=== PATIENT | female | born 1960 ===

== ENCOUNTER 2016-09-22 14:53 | Outpatient (CLI) | payer OTHER ==
[~2016-09-22] VITALS: Ht 171.4 cm; Wt 87.3 kg
[2016-09-22 15:02] VITALS: BP 153/66; PULSE 90; RESP 20; Ht 171.4 cm; Wt 87.3 kg
[2016-09-22] MEDS ORDERED: MEGE400O PO (15:13)
[2016-09-22] MEDS ORDERED: LACTINEXG PO (15:13)
[2016-09-22] MEDS ORDERED: LACT10SO5 PO (15:13)
[2016-09-22] MEDS ORDERED: THIA100T56 PO (15:13)
[2016-09-22] MEDS ORDERED: ASCO500C7 PO (15:13)
[2016-09-22] MEDS ORDERED: PANT40TA3 PO (15:13)
[2016-09-22] MEDS ORDERED: TRAM-40 PO (15:13)
--- NOTE | 2016-09-22 17:11 | CONS ---
[facility] INITIAL OUTPATIENT CONSULTATION NOTE DATE OF CONSULTATION: 09/22/2016 PLACE OF SERVICE: [facility] ASSESSMENT AND PLAN: A very pleasant but unfortunate 55-year-old lady with multiple comorbid issues including cirrhosis that has been complicated by portal hypertension and development of what appears to be multifocal hepatocellular carcinoma. These lesions are not surgically resectable given the degree of the patient's cirrhosis. Her chance of mortality is virtually 100 % with the type of operation that is needed. Furthermore, there are contraindications to both surgical resection as well as transplant given the presence of both portal vein thrombosis as well as presence of clot within the right hepatic vein going into the inferior vena cava. The best course of treatment for the patient would be local treatment to the liver in the form of transarterial chemoembolization which is incidentally what was recommended to her by Dr. Carroll in 2016 visit that she had to [facility] on January 05 through January 11. I described the procedure in detail as well as the expected course and outcome. I also discussed potential benefit from systemic chemotherapy, although I do not believe that the benefits justify the risk. Other forms of therapy such as ablative therapy are not as effective in my opinion, and I therefore did not discuss them with her. I answered all the patient's questions to the best of my ability, and I believe that the patient understood and agreed with the plans. Note that this planning and discussion was in conjunction with detailed diagrams. With above assessment, I have recommended the followin. Transarterial chemoembolization to right lobe of the liver. 2. Follow up CT scan triple phase IV abdomen and pelvis, liver dedicated, in 2 to 3 months after performance of TACE. 3. Follow up with oncology regarding systemic chemotherapy options. 4. Follow up with us after above CT. Thank you again for allowing us to participate in the care of this very pleasant lady and I am certain her wonderful family. If there are any questions , please feel free to contact me at [phone]. TOTAL VISIT TIME: 45 minutes of which more than half was spent in [id number] discussion with the patient as well as coordination of care between multiple physicians and providers. UPDATED CLINICAL SUMMARY: A very pleasant but unfortunate 55-year-old lady with comorbid issues including homeless status as well as heavy chronic drinking in the past, diagnosed with cirrhosis and 2 liver lesions since 2016. COMORBIDITIES: 1. BMI 25.8. 2. Former smoker, quit in 1996. 3. Intravenous drug use as a teenager and quit at that time. 4. History of blood transfusion 03/17/2016. 5. Hepatitis C genotype 1B, untreated. 6. Complication of cirrhosis. 7. Complication of portal hypertension as evidenced by thrombocytopenia with platelets consistently below 100 and mainly in the 50s to 60s as well as recanalization of umbilical vein and subcutaneous engorged veins but no reported episode of hematemesis. 8. Elevated alpha fetoprotein at 123 and CA 19-9 at 45.1. 9. Hyperbilirubinemia with bilirubin in the 2 to 2.2 range. 10. Malnutrition with albumin of 2.4. 11. Liver mass with latest CT, 08/03/2016, showing a 5.7 x 4 cm mass in the posterior segment of the right lobe of the liver, likely segment 6, with possible second mass in segment 8 of the liver which is approximately 2 to 3 cm in size. 12. Complication of portal vein thrombosis. 13. Complication of thrombus within right hepatic vein as well as the inferior vena cava right before the entrance of blood into the right atrium. 14. History of uterine fibroids. 15. Possible small gallstone disease. 16. Complication of anasarca. 17. Bilateral inguinal lymphadenopathy. 18. Multiple uterine fibroids. 19. Pulmonary nodules seen on 07/02/2016; 3.3 mm nodule in the right upper lobe , multiple other small nodules throughout the lung [place]. 20. Kidney dysfunction in the past with creatinine 2.37 on 02/12/2016, improved to 0.6 on 03/14/2016 and 0.7 on 03/19/2016. 21. Above-mentioned thrombocytopenia. 22. Anemia. 23. Cellulitis of right lower extremity 06/18/2016. 24. Hypertension. DATE OF ADMISSION: 09/22/2016 HISTORY OF PRESENT ILLNESS: The patient is a very pleasant but unfortunate 55- year-old lady with numerous comorbid issues, the most serious of which is cirrhosis of the liver which is likely a combination of previous alcoholism as well as hepatitis C infection, genotype 1B, with complication of mild ascites as well as portal hypertension and presence of 2 masses in the liver that are concerning for hepatocellular carcinoma. These masses have been known since 2016, and to my knowledge, there has been no treatment for either hepatitis C or these masses. Complicating the clinical picture is the patient's social situation of being homeless and having very poor social support around to her. She was kindly referred to us for possible surgical evaluation and treatment recommendations. The patient herself has a number of complaints including loading and retaining water but no specific issues with significant abdominal pain or issues with appetite. She does not report any hematemesis and does not report any previous issues with ascites that required intervention. No other major complaints. ALLERGIES: NO KNOWN DRUG ALLERGIES. MEDICATIONS: The patient is on acidophilus capsule, Protonix, Tylenol, Megace, tramadol, thiamine, lactulose, and vitamin C. SOCIAL HISTORY: The patient has 2 sons. She was born in [facility]. She is single, unemployed, and homeless. She quit smoking in 1996. She was smoking 20 to 39 cigarettes per day before that. She started drinking at age 18 and drank a fifth of liquor every day for about 10 years and stopped drinking in 2001. She also had 1 short episode of exposure to intravenous drugs as a teenager, and she quit at that time. FAMILY HISTORY: No mention of major medical, surgical, or oncologic problems in the family. REVIEW OF SYSTEMS: Other than the above-mentioned, there are no other pertinent positives or pertinent negatives in a complete 14-point review of systems. PHYSICAL EXAMINATION: GENERAL: The patient appears to be a very pleasant lady of non - descent, appearing stated age, sitting in a chair comfortably, and in no acute distress. Her BMI is roughly around 25. VITAL SIGNS: Temperature 97.8, blood pressure 153/66, pulse 90, respiratory rate 20, pulse oximetry 100% on room air. HEENT: Normocephalic and atraumatic. Extraocular muscles and hearing are grossly intact bilaterally and symmetrically. Sclerae are nonicteric. Oral cavity is clear; oral mucosa appeared to be pink and moist. Dentition: poor. NECK: Supple. There is no lymphadenopathy or JVD. There is no submental, submandibular or supraclavicular lymphadenopathy. CHEST: Rises symmetrically with each breath; patient is breathing comfortably. There are no audible wheezes, rales or rhonchi on the gross exam. HEART: Pulse is regular and palpable on the right wrist. Capillary refill was normal. Carotid pulses are palpable bilaterally and symmetrically in the neck. Soft, nontender, and nondistended. There is no evidence of organomegaly, caput medusae, obvious engorged subcutaneous veins, or evidence of ascites. There are no peritoneal signs or guarding. EXTREMITIES: Lower extremities appear to be swollen with 3+ pitting edema around the ankles bilaterally and symmetrically. The right ankle and leg area is covered by dressing, and the patient reported having venous stasis type ulcer disease on the skin. SKIN: Appears to be pink and feels warm to touch. NEUROLOGIC: Awake, alert, and follows commands appropriately. LABORATORY DATA: Alpha fetoprotein 123 on 06/22/2016. CA19-9 was 45.1 on 06/22. Platelet count 42,000 in May 2016, and then repeat check was 64,000 on 08/03/2016. Total bilirubin 4.5, alkaline phosphatase 152, AST 225, ALT 79, albumin 1.9, creatinine 0.9. IMAGING: The patient's pertinent images were reviewed above. Note that I personally reviewed all the available and pertinent images and I agree in general with their overall reported findings, although the last and most recent report does not mention the lesion in segment 4A. The patient also has the above-mentioned thrombosis of the portal vein and the clot that is seen in the right hepatic vein going into the inferior vena cava. Dictated By: ARCHIE ESQUEDA/NTS Conf#: [id number] DID#: [id number] CC: Zhao Hollingsworth MD; Juwan Rice MD; Agus Rodriguez MD;*EndCC* MTDD
== END 2016-09-22 16:53 | disposition home or self-care (01) ==
LOC: HPC 14:53
PROVIDERS: ATTEND Transplant Surgery
DX: K74.60 Unspecified cirrhosis of liver (principal); K76.9 Liver disease, unspecified; K76.6 Portal hypertension; B19.20 Unspecified viral hepatitis C without hepatic coma; I81 Portal vein thrombosis; I10 Essential (primary) hypertension; F10.21 Alcohol dependence, in remission; Z87.891 Personal history of nicotine dependence; Z59.0 Homelessness
CPT/HCPCS: G0463